=== PATIENT | female | born 1945 | race Caucasian/White ===

== ENCOUNTER 2016-11-30 11:29 | Outpatient (CLI) | payer OTHER ==
[2016-11-30 11:47] LABS: BASOPHILS % 0.4 (0.0-1.5); EOSINOPHILS % 4.4 % (0.0-6.8); LYMPHOCYTES # 2.4 # k/uL (0.6-4.0); MEAN CORPUSCULAR HEMOGLOBIN 30.4 pg (28.0-34.0); MONOCYTES # 0.3 # k/uL (0.0-0.9); MONOCYTES % 4.6 % (0.0-11.0); NEUTROPHILS # 3.5 # k/uL (1.4-7.7)
[2016-11-30 11:48] LABS: APPEARANCE,URINE Clear (CLEAR); COLOR,URINE Yellow (YELLOW); OCCULT BLOOD,URINE 1+ (NEGATIVE); UROBILINOGEN URINE 0.2 Eu (0.2-1.0)
[2016-11-30 12:28] LABS: eGFR (African) > 60; eGFR (Non-African) > 60
== END 2016-11-30 11:30 ==
LOC: LAB 11:29
PROVIDERS: ATTEND Family Medicine
DX: I10 Essential (primary) hypertension (principal)
CPT/HCPCS: 36415; 80053; 80061; 81002; 85025

== ENCOUNTER 2016-12-21 07:13 | Outpatient (CLI) | payer OTHER ==
[2016-12-21 08:09] LABS: eGFR (African) > 60; eGFR (Non-African) > 60
== END 2016-12-21 07:14 ==
LOC: LAB 07:13
PROVIDERS: ATTEND Internal Medicine Cardiovascular Disease
DX: R07.9 Chest pain, unspecified (principal); I10 Essential (primary) hypertension
CPT/HCPCS: 36415; 80053; 80061